=== PATIENT | male | born 1985 | race Caucasian/White ===

== ENCOUNTER 2018-03-30 15:12 | Emergency (ER) | payer OTHER ==
[~2018-03-30] VITALS: Ht 175.3 cm; Wt 72.6 kg
[2018-03-30] MEDS ORDERED: ZOFRAN ODT4 MG PO (15:47)
[2018-03-30] MEDS ORDERED: NEURONTIN300 MG PO (15:47)
[2018-03-30] MEDS ORDERED: TRAZODONE HCL50 MG PO (15:48)
[2018-03-30] MEDS ORDERED: NORCO 5-325 TA1 EACH PO (15:49)
[2018-03-30] MEDS ORDERED: ZITHROMAX250 MG PO (16:45)
[2018-03-30] MEDS ORDERED: GUAIFEN-CODEINE10 ML PO (16:45)
[2018-03-30] MEDS ORDERED: METHYLPREDNISOLO4 M1 PO (16:45)
== END 2018-03-30 16:56 | disposition home or self-care (01) ==
LOC: ED 15:12
DX: J40 Bronchitis, not specified as acute or chronic (principal); J45.909 Unspecified asthma, uncomplicated; F17.200 Nicotine dependence, unspecified, uncomplicated; Z88.8 Allergy status to other drugs, medicaments and biological substances; Z79.899 Other long term (current) drug therapy
CPT/HCPCS: 71046; 99283

== ENCOUNTER → 2023-09-29 | Emergency (ER) | payer OTHER ==
[~2023-09-29] VITALS: Ht 175.3 cm; Wt 85.0 kg
[~2023-09-29] MED LIST: ACETAMINOPHEN 325 MG TAB PO ONE; ACETAMINOPHEN 500 MG TAB PO ONE; ACETAMINOPHEN 500 MG TAB PO PRN; GUAIFEN-CODEINE10 ML PO; HALOPERIDOL LACTATE 5 MG/ML VIAL IM ONE; LIDOCAINE 2% VISCOUS 6 ML SYR TOP ONE; LORazepam 2 MG/ML VIAL IM ONE; METHYLPREDNISOLO4 M1 PO; NEURONTIN300 MG PO; NICOTINE 21 MG/24 HR 1 EA TDSY TD SCH; NORCO 5-325 TA1 EACH PO; TRAZODONE HCL50 MG PO; ZITHROMAX250 MG PO; ZOFRAN ODT4 MG PO
--- OUTSIDE RECORDS SUMMARY | 2023-09-29 10:56 | XMS ---
PreManage Notification: XAVI OLIVO Security Spring Repairer Helper Hand Events No recent Security Events currently on file CRITERIA MET - Group Notification - [facility] - 2 Visits in 30 Days CARE PROVIDERS -Jose Armando- Dentist: Top Cleaner [facility] PHONE: [phone] LOLITA BARRAGAN [facility]/Center: [facility] COMMUNITY PHONE: Unknown LANDON LEROY [facility] Current PHONE: [phone] [facility] Clinic/Center: Primary Care [facility] CARE CLINIC PHONE: [phone] Nida has no Care Guidelines for this patient. [place] VISIT COUNT (12 MO.) 2 EDUARDO Mg TOTAL 2 NOTE: Visits indicate total known visits. ED/UCC VISIT TRACKING (12 MO.) 09/29/2023 10:55 [place] TYPE: Emergency COMPLAINT: - MEDICAL CLEARANCE 09/28/2023 15:42 [place] TYPE: Emergency COMPLAINT: - MULTIPLE COMPLAINTS INPATIENT VISIT TRACKING (12 MO.) No inpatient visits to display in this time frame [id number]
[2023-09-29 13:21] LABS: BASOPHILS 0.6 % (0-2); EOSINOPHILS 1.3 % (0-6); HEMOGLOBIN 11.3 g/dL (12.0-18.0); LYMPHOCYTES 21.2 % (24-44); MCH 32.7 (27-36); MCHC 33.3 g/dl (30-36); NEUTROPHILS 69.9 % (39-80); PLATELET COUNT 466 K/uL (140-440); RBC 3.47 M/ul (4.3-5.7); RDW 14.8 (10.5-15.0)
[2023-09-29 14:00] LABS: ALBUMIN 1.8 g/dL (3.4-5.0); ALBUMIN/GLOBULIN RATIO 0.51 (1.1-2.4); ALCOHOL, MEDICAL <3 ng/dL (<3); ALKALINE PHOSPHATASE 205 U/L (46-116); ALT (SGPT) 36 U/L (14-59); ANION GAP 11.9 (7-21); AST (SGOT) 28 U/L (15-37); BILIRUBIN, TOTAL 0.3 ng/dL (0.2-1.0); BUN/CREATININE RATIO 17.64 (6.0-28.6); CALCIUM 8.2 mg/dL (8.5-10.1); CARBON DIOXIDE 28 mmol/L (21-32); CHLORIDE 103 mmol/L (98-107); CREATININE, SERUM 0.85 mg/dL (0.70-1.30); GLOMERULAR FILTRATION RATE,EST 113 mL/min (>60); POTASSIUM 3.9 mmol/L (3.5-5.1); PROTEIN, TOTAL 5.3 g/dL (6.4-8.2); TSH, 3RD GENERATION 1.758 uIU/mL (0.358-3.740); UREA NITROGEN 15 mg/dL (7-18)
[2023-09-29 14:12] LABS: ACETAMINOPHEN 0 ug/mL (10-30); SALICYLATE 2.6 mg/dL (2.8-20.0)
[2023-09-29 15:10] LABS: BILIRUBIN, URINE NEGATIVE (negative); BLOOD/HGB, URINE LARGE (Negative); KETONE, URINE NEGATIVE (Negative); LEUK ESTERASE, URINE NEGATIVE (negative); NITRITE, URINE NEGATIVE (negative); PH, URINE 7.5 (5-7)
[2023-09-29 15:18] LABS: BACTERIA, URINE NONE SEEN /hpf (negative); CASTS, URINE NONE SEEN \\lpf; COLLECTION TYPE, URINE CLEAN CATCH; CRYSTALS, URINE AMORPHOUS PHOSPH 1+ (0-1+); EPITHELIAL CELLS, URINE 0 /lpf (0-1+); RED BLOOD CELLS, URINE >50 /hpf (0-5); REFLEX CULTURE, URINE No (No)
[2023-09-29 15:31] LABS: AMPHETAMINES, URINE POSITIVE (NEGATIVE); BARBITURATES, URINE NEGATIVE (NEGATIVE); BENZODIAZEPINE, URINE NEGATIVE (NEGATIVE); BUPRENORPHINE, URINE NEGATIVE (NEGATIVE); CANNABINOID, URINE NEGATIVE (NEGATIVE); COCAINE, URINE NEGATIVE (NEGATIVE); ECSTASY, URINE NEGATIVE (NEGATIVE); FENTANYL, URINE NEGATIVE (NEGATIVE); METHADONE, URINE NEGATIVE (NEGATIVE); OPIATES, URINE NEGATIVE (NEGATIVE); OXYCODONE, URINE NEGATIVE (NEGATIVE); PHENCYCLIDINE, URINE NEGATIVE (NEGATIVE)
[2023-09-29 15:40] LABS: INR 0.87 (0.80-1.30); PROTIME 11.2 Sec (11.2-14.2)
== END ==
LOC: ED 10:49
PROVIDERS: Emergency Medicine
DX: R60.0 Localized edema (principal); F15.10 Other stimulant abuse, uncomplicated; F22 Delusional disorders; N50.89 Other specified disorders of the male genital organs; J45.909 Unspecified asthma, uncomplicated; G89.29 Other chronic pain; F17.200 Nicotine dependence, unspecified, uncomplicated; Z88.6 Allergy status to analgesic agent
CPT/HCPCS: 36415; 80053; 80307; 81001; 84443; 85025; 85610; A9270; G0480; J1630; J2060

== ENCOUNTER 2024-03-10 12:46 | Emergency (ER) | payer OTHER ==
[~2024-03-10] VITALS: Ht 175.3 cm; Wt 73.8 kg
[~2024-03-10 12:46] MED LIST changes: -ACETAMINOPHEN 325 MG TAB PO ONE; -ACETAMINOPHEN 500 MG TAB PO ONE; -ACETAMINOPHEN 500 MG TAB PO PRN; -HALOPERIDOL LACTATE 5 MG/ML VIAL IM ONE; -LIDOCAINE 2% VISCOUS 6 ML SYR TOP ONE; -LORazepam 2 MG/ML VIAL IM ONE; -NICOTINE 21 MG/24 HR 1 EA TDSY TD SCH; +SEROQUEL50 MG PO
--- OUTSIDE RECORDS SUMMARY | 2024-03-10 12:53 | XMS ---
PreManage Notification: XAVI OLIVO Security Special Delivery Carrier Events 1 event(s) in the past 18 months Most recent security events: Elopement at [facility] 09/28/2023 15:42 - Patient eloped with IV in place. - Patient eloped before treatment completed. - Patient with suicidal and/or homicidal ideations eloped. Details: Patient left AMA. CRITERIA MET - Group Notification CARE PROVIDERS -[facility] Dentist: Fullerette [facility] Day PHONE: [phone] -Jose Armando- Dentist: Fullerette [facility] PHONE: [phone] [facility]: [facility] PHONE: Unknown LANDON LEROY [facility] Current PHONE: [phone] DIANNE PRIMARY Clinic/Center: Primary Care [facility] PHONE: [phone] Nida has no Care Guidelines for this patient. [place] VISIT COUNT (12 MO.) 4 EDUARDO Mg TOTAL 4 NOTE: Visits indicate total known visits. ED/C VISIT TRACKING (12 MO.) 03/10/2024 12:47 [place] TYPE: Emergency COMPLAINT: - WEAKNESS 01/28/2024 10:45 [place] TYPE: Emergency COMPLAINT: - ALTERED DIAGNOSES: - Localized edema - Nicotine dependence, unspecified, uncomplicated - Other psychoactive substance use, unspecified, uncomplicated - Transient alteration of awareness 09/29/2023 10:55 [place] TYPE: Emergency COMPLAINT: - MEDICAL CLEARANCE DIAGNOSES: - Allergy status to analgesic agent - Delusional disorders - Encounter for other administrative examinations - Localized edema - Nicotine dependence, unspecified, uncomplicated - Other chronic pain - Other specified disorders of the male genital organs - Other stimulant abuse, uncomplicated - Unspecified asthma, uncomplicated 09/28/2023 15:[address] [facility] [place] TYPE: Emergency COMPLAINT: - MULTIPLE COMPLAINTS DIAGNOSES: - Allergy status to analgesic agent - Delusional disorders - Localized edema - Nicotine dependence, unspecified, uncomplicated - Other chronic pain - Other disorders of glycoprotein metabolism - Procedure and treatment not carried out because of patient's decision for other reasons - Unspecified asthma, uncomplicated INPATIENT VISIT TRACKING (12 MO.) No inpatient visits to display in this time frame [id number]
[2024-03-10] MEDS ORDERED: SODIUM CHLORIDE 0.9% 1,000 ML IV PRN (13:15)
[2024-03-10 13:37] LABS: BASOPHILS 1.5 % (0-2); EOSINOPHILS 0.8 % (0-6); HEMATOCRIT 35.8 % (35.0-50.0); HEMOGLOBIN 12.2 g/dL (12.0-18.0); LYMPHOCYTES 17.5 % (24-44); MCH 30.8 (27-36); MCV 90.6 fl (81-99); MONOCYTES 6.5 % (0-12); NEUTROPHILS 73.7 % (39-80); PLATELET COUNT 414 K/uL (140-440); RBC 3.96 M/ul (4.3-5.7); RDW 18.2 (10.5-15.0)
[2024-03-10 13:49] LABS: ALBUMIN 2.8 g/dL (3.4-5.0); ALBUMIN/GLOBULIN RATIO 0.88 (1.1-2.4); BILIRUBIN, TOTAL 0.3 ng/dL (0.2-1.0); BUN/CREATININE RATIO 20.73 (6.0-28.6); CALCIUM 8.2 mg/dL (8.5-10.1); CREATININE, SERUM 0.82 mg/dL (0.70-1.30)
[2024-03-10] MEDS ORDERED: ONDANSETRON ODT4 MG PO (14:02)
[2024-03-10 14:10] VITALS: BP 113/69
[2024-03-10] MEDS ORDERED: VISTARIL25 MG PO (16:58)
== END 2024-03-10 14:10 | disposition home or self-care (01) ==
LOC: ED 12:46
PROVIDERS: Emergency Medicine
DX: R11.2 Nausea with vomiting, unspecified (principal); F17.200 Nicotine dependence, unspecified, uncomplicated; Z88.6 Allergy status to analgesic agent
CPT/HCPCS: 36415; 80053; 80307; 85025; 99284; J7030

== ENCOUNTER 2024-05-01 11:10 | Emergency (ER) | payer OTHER ==
[~2024-05-01] VITALS: Ht 180.3 cm; Wt 67.4 kg
[~2024-05-01 11:10] MED LIST changes: +ONDANSETRON ODT4 MG PO; +VISTARIL25 MG PO
--- OUTSIDE RECORDS SUMMARY | 2024-05-01 11:16 | XMS ---
PreManage Notification: XAVI OLIVO Security Marine Operations Coordinator Events 1 event(s) in the past 18 months Most recent security events: Elopement at [facility] 09/28/2023 15:42 - Patient eloped with IV in place. - Patient eloped before treatment completed. - Patient with suicidal and/or homicidal ideations eloped. Details: Patient left AMA. CRITERIA MET - Group Notification CARE PROVIDERS -[facility] Dentist: Senior Court Office Assistant [facility] Day PHONE: [phone] -Jose Armando- Dentist: Senior Court Office Assistant [facility] PHONE: [phone] [facility]: [facility] PHONE: Unknown LANDON LEROY [facility] Current PHONE: [phone] [facility] PRIMARY Clinic/Center: Primary Care [facility] PHONE: [phone] Nida has no Care Guidelines for this patient. [place] VISIT COUNT (12 MO.) 7 EDUARDO Mg TOTAL 7 NOTE: Visits indicate total known visits. ED/C VISIT TRACKING (12 MO.) 05/01/2024 11:10 [place] TYPE: Emergency COMPLAINT: - EAR PAIN 03/21/2024 21:36 [place] TYPE: Emergency COMPLAINT: - DEABETIC ISSUES DIAGNOSES: - Allergy status to analgesic agent - Hypoglycemia, unspecified - Nicotine dependence, unspecified, uncomplicated - Strain of muscle and tendon of back wall of thorax, initial encounter 03/10/2024 16:52 [place] TYPE: Emergency COMPLAINT: - WEAKNESS DIAGNOSES: - Allergy status to analgesic agent - Anxiety disorder, unspecified - Nicotine dependence, unspecified, uncomplicated 03/10/2024 12:[facility] [place] [place]: Emergency COMPLAINT: - WEAKNESS DIAGNOSES: - Allergy status to analgesic agent - Nausea with vomiting, unspecified - Nicotine dependence, unspecified, uncomplicated 01/28/2024 10:45 [facility] [place] TYPE: Emergency COMPLAINT: - ALTERED DIAGNOSES: - Localized edema - Nicotine dependence, unspecified, uncomplicated - Other psychoactive substance use, unspecified, uncomplicated - Transient alteration of awareness 09/29/2023 10:55 [facility] [place] [facility] TYPE: Emergency COMPLAINT: - MEDICAL CLEARANCE DIAGNOSES: - Allergy status to analgesic agent - Delusional disorders - Encounter for other administrative examinations - Localized edema - Nicotine dependence, unspecified, uncomplicated - Other chronic pain - Other specified disorders of the male genital organs - Other stimulant abuse, uncomplicated - Unspecified asthma, uncomplicated 09/28/2023 15:[address] [facility] [place]: Emergency COMPLAINT: - MULTIPLE [...] visits to display in this time frame [id number]
[2024-05-01] MEDS ORDERED: AMOX TR-K CLV1 EAC1 PO (13:09)
[2024-05-01] MEDS ORDERED: IBUPROFEN 600 MG TAB PO ONE (13:15)
[2024-05-01] MEDS ORDERED: AMOXICILLIN 500 MG CAP PO ONE ×2 (13:15→13:30)
[2024-05-01] MEDS ORDERED: ACETAMINOPHEN 325 MG TAB PO ONE (13:15)
[2024-05-01 13:24] VITALS: BP 125/81
== END 2024-05-01 13:24 | disposition home or self-care (01) ==
LOC: ED 11:10
DX: H66.91 Otitis media, unspecified, right ear (principal); F17.200 Nicotine dependence, unspecified, uncomplicated
CPT/HCPCS: 99283; A9270

== ENCOUNTER 2025-03-15 12:28 | Emergency (ER) | payer SELFPAY ==
[~2025-03-15] VITALS: Ht 180.3 cm; Wt 79.0 kg
[~2025-03-15 12:28] MED LIST changes: +AMOX TR-K CLV1 EAC1 PO
[2025-03-15] MEDS ORDERED: KETOROLAC TROMETHAMINE 30 MG/ML VIAL IV ONE (12:30)
[2025-03-15] MEDS ORDERED: LACTATED RINGER'S 1,000 ML IV ONE (12:30)
--- OUTSIDE RECORDS SUMMARY | 2025-03-15 12:30 | XMS ---
PreManage Notification: XAVI OLIVO Security Clinical Abstractor Events 1 event(s) in the past 18 months Most recent security events: Elopement at [facility] 09/28/2023 15:42 Details: Patient monica AMA. CRITERIA MET - Group Notification CARE PROVIDERS -, [facility] Dentist: Side Seam Tender Current PHONE: [phone] -Jose Armando- Dentist: Side Seam Tender [facility] Dental [facility] PHONE: [phone] LOLITA BARRAGAN [facility]/Center: [facility] PHONE: Unknown LANDON LEROY [facility] Current PHONE: [phone] Nida has no Care Guidelines for this patient. [place] VISIT COUNT (12 MO.) 3 EDUARDO Mg TOTAL 3 NOTE: Visits indicate total known visits. ED/UCC VISIT TRACKING (12 MO.) 03/15/2025 12:29 [place] TYPE: Emergency COMPLAINT: - HEAT EXHAUSTION 05/01/2024 11:10 [place] TYPE: Emergency COMPLAINT: - EAR PAIN DIAGNOSES: - Nicotine dependence, unspecified, uncomplicated - Otalgia, right ear - Otitis media, unspecified, right ear 03/21/2024 21:36 [place] TYPE: Emergency COMPLAINT: - DEABETIC ISSUES DIAGNOSES: - Allergy status to analgesic agent - Hypoglycemia, unspecified - Nicotine dependence, unspecified, uncomplicated - Strain of muscle and tendon of back wall of thorax, initial encounter INPATIENT VISIT TRACKING (12 MO.) No inpatient visits to display in this time frame [id number]
[2025-03-15] MEDS ORDERED: ACETAMINOPHEN 500 MG TAB PO ONE (12:45)
[2025-03-15 12:57] LABS: BASOPHILS 0.4 % (0.2-1.2); EOSINOPHILS 1.2 % (0.8-7.0); LYMPHOCYTES 24.6 % (21.8-53.1); MCH 32.2 PG (25.7-32.2); MCHC 34.9 g/dL (32.3-36.5); MCV 92.3 fL (79.0-92.2); MONOCYTES 10.7 % (5.3-12.2); NEUTROPHILS 62.8 % (34.0-67.9); RBC 3.26 M/uL (4.63-6.08)
[2025-03-15 13:13] LABS: ALT (SGPT) 51.0 U/L (14-59); AST (SGOT) 39.0 U/L (15-37); GLOMERULAR FILTRATION RATE,EST 58.0 mL/min (>60); PROTEIN, TOTAL 5.0 g/dL (6.4-8.2); UREA NITROGEN 16.0 mg/dL (7-18)
[2025-03-15] MEDS ORDERED: SODIUM CHLORIDE 0.9% 1,000 ML IV ONE (14:30)
[2025-03-15 15:32] VITALS: BP 115/70
== END 2025-03-15 15:35 | disposition home or self-care (01) ==
LOC: ED 12:28
PROVIDERS: Emergency Medicine
DX: T67.5XXA Heat exhaustion, unspecified, initial encounter (principal); F17.200 Nicotine dependence, unspecified, uncomplicated; X30.XXXA Exposure to excessive natural heat, initial encounter; Z59.02 Unsheltered homelessness; Z88.6 Allergy status to analgesic agent
CPT/HCPCS: 36415; 80053; 85025; 99283; A9270; J7030; J7121

== ENCOUNTER 2025-08-08 14:34 | Emergency (ER) | payer OTHER ==
[~2025-08-08] VITALS: Ht 180.3 cm; Wt 86.1 kg
--- OUTSIDE RECORDS SUMMARY | 2025-08-08 14:35 | XMS ---
PreManage Notification: XAVI OLIVO Security Job Development Specialist Events No recent Security Events currently on file CRITERIA MET - Group Notification CARE PROVIDERS -, [facility] Dentist: Skin Piler Natasha Britt PHONE: [phone] -Jose Armando- Dentist: Skin Piler Natasha [facility] PHONE: [phone] LOLITA BARRAGAN [facility]: [facility] PHONE: Unknown LANDON LEROY [facility] Current PHONE: [phone] Nida has no Care Guidelines for this patient. [place] VISIT COUNT (12 MO.) 2 EDUARDO Mg TOTAL 2 NOTE: Visits indicate total known visits. ED/UCC VISIT TRACKING (12 MO.) 08/08/2025 14:35 [place] TYPE: Emergency COMPLAINT: - SKIN PROBLEM BOTH FEET 03/15/2025 12:29 [place] TYPE: Emergency COMPLAINT: - HEAT EXHAUSTION DIAGNOSES: - Allergy status to analgesic agent - Exposure to excessive natural heat, initial encounter - Heat exhaustion, unspecified, initial encounter - Nicotine dependence, unspecified, uncomplicated - Unsheltered homelessness INPATIENT VISIT TRACKING (12 MO.) No inpatient visits to display in this time frame [id number]
[2025-08-08 21:53] LABS: BASOPHILS 0.4 % (0.2-1.2); EOSINOPHILS 2.6 % (0.8-7.0); LYMPHOCYTES 38.4 % (21.8-53.1); MCH 31.7 PG (25.7-32.2); MCHC 34.4 g/dL (32.3-36.5); MCV 92.2 fL (79.0-92.2); MONOCYTES 7.1 % (5.3-12.2); NEUTROPHILS 51.4 % (34.0-67.9); RBC 3.72 M/uL (4.63-6.08)
[2025-08-08 22:25] LABS: ALT (SGPT) 59.0 U/L (14-59); AST (SGOT) 43.0 U/L (15-37); GLOMERULAR FILTRATION RATE,EST 104.0 mL/min (>60); PROTEIN, TOTAL 5.4 g/dL (6.4-8.2); UREA NITROGEN 12.0 mg/dL (7-18)
[2025-08-08] MEDS ORDERED: AMOXICILLIN/CLAVULANATE K 875 MG HOME.PACK PO ONE (23:15)
[2025-08-08] MEDS ORDERED: TRAMADOL HCL 50 MG HOME.PACK PO ONE (23:15)
[2025-08-08] MEDS ORDERED: POTASSIUM CHLORIDE 10 MEQ TABCR PO ONE (23:15)
[2025-08-08] MEDS ORDERED: TRAMADOL HCL50 MG PO (23:17)
[2025-08-08] MEDS ORDERED: LASIX40 MG PO (23:17)
[2025-08-08] MEDS ORDERED: DOXYCYCLINE HYCLATE 100 MG HOME.PACK PO ONE (23:45)
[2025-08-12] MEDS ORDERED: GABAPENTIN300 MG PO (08:33)
[2025-08-12] MEDS ORDERED: TRAMADOL HCL50 MG PO (08:33)
[2025-08-12] MEDS ORDERED: TRAZODONE HCL50 MG NG (08:38)
== END 2025-08-09 00:39 | disposition home or self-care (01) ==
LOC: ED 14:34
PROVIDERS: Family Medicine
DX: L03.116 Cellulitis of left lower limb (principal); L03.115 Cellulitis of right lower limb; F17.200 Nicotine dependence, unspecified, uncomplicated; Z79.899 Other long term (current) drug therapy; Z88.6 Allergy status to analgesic agent
CPT/HCPCS: 36415; 71045; 80053; 83735; 83880; 84550; 85025; 85379; 86140; 99283-25; A9270

== ENCOUNTER → 2025-08-12 | Emergency (ER) | payer OTHER ==
[~2025-08-12] VITALS: Ht 180.3 cm; Wt 86.1 kg
[~2025-08-12] MED LIST changes: +GABAPENTIN300 MG PO; +LASIX40 MG PO; +TRAMADOL HCL50 MG PO; +TRAZODONE HCL50 MG NG
--- OUTSIDE RECORDS SUMMARY | 2025-08-12 08:10 | XMS ---
PreManage Notification: XAVI OLIVO Security And Rescue Fire Fighter Crash Fire Events No recent Security Events currently on file CRITERIA MET - Group Notification - [facility] - 2 Visits in 30 Days CARE PROVIDERS -, [facility] Dentist: Machine Assembler For Puller Over Current [place] PHONE: [phone] -Jose Armando- Dentist: Machine Assembler For Puller Over Current [facility] PHONE: [phone] LOLITA BARRAGAN [facility]: [facility] PHONE: Unknown LANDON LEORY [facility] Current PHONE: [phone] Nida has no Care Guidelines for this patient. [place] VISIT COUNT (12 MO.) 3 EDUARDO Mg TOTAL 3 NOTE: Visits indicate total known visits. ED/UCC VISIT TRACKING (12 MO.) 08/12/2025 08:10 [place] TYPE: Emergency COMPLAINT: - FOOT PAIN 08/08/2025 14:35 [place] TYPE: Emergency [...] visits to display in this time frame [id number]
== END ==
LOC: ED 08:09
DX: L97.529 Non-pressure chronic ulcer of other part of left foot with unspecified severity (principal); L97.519 Non-pressure chronic ulcer of other part of right foot with unspecified severity; R60.0 Localized edema; J45.909 Unspecified asthma, uncomplicated; Z88.6 Allergy status to analgesic agent; F17.200 Nicotine dependence, unspecified, uncomplicated
CPT/HCPCS: 99282

== ENCOUNTER 2025-08-13 12:25 | Emergency (ER) | payer OTHER ==
[~2025-08-13] VITALS: Ht 180.3 cm; Wt 82.1 kg
--- OUTSIDE RECORDS SUMMARY | 2025-08-13 12:26 | XMS ---
PreManage Notification: XAVI OLIVO Security Deputy Chief Magistrate Events No recent Security Events currently on file CRITERIA MET - Group Notification - [facility] - 2 Visits in 30 Days CARE PROVIDERS -, [facility] Dentist: Finance Controller Current [place] PHONE: [phone] -Jose Armando- Dentist: Finance Controller Current [facility] PHONE: [phone] LOLITA BARRAGAN [facility]: [facility] PHONE: Unknown LANDON LEROY [facility] Current PHONE: [phone] Nida has no Care Guidelines for this patient. [place] VISIT COUNT (12 MO.) 4 EDUARDO Mg TOTAL 4 NOTE: Visits indicate total known visits. ED/UCC VISIT TRACKING (12 MO.) 08/13/2025 12:26 [place] TYPE: Emergency COMPLAINT: - PAIN/SWELLING 08/12/2025 08:10 [place] COMPLAINT: - FOOT PAIN [...] visits to display in this time frame [id number]
[2025-08-13] MEDS ORDERED: TRAMADOL HCL 50 MG TAB PO ONE (13:45)
== END 2025-08-13 14:39 | disposition home or self-care (01) ==
LOC: ED 12:25
DX: R60.0 Localized edema (principal); J45.909 Unspecified asthma, uncomplicated; Z79.899 Other long term (current) drug therapy; F17.200 Nicotine dependence, unspecified, uncomplicated; Z88.6 Allergy status to analgesic agent
CPT/HCPCS: 99283